=== PATIENT | female | born 1940 ===

== ENCOUNTER 2017-08-06 16:36 | Inpatient (IN) | payer MEDICARE ==
[~2017-08-06] VITALS: Ht 144.8 cm; Wt 74.4 kg
[2017-08-06 15:00] VITALS: BP 152/65
[2017-08-06 16:00] VITALS: BP 170/80
--- NOTE | 2017-08-06 16:00 | NUR ---
Admitted to ARU per wheelchair accompanied by ambulance staff. With diagnosis os osteoarthritis left knee, S/P TKA. With pain rated as 10/10 over left knee. Alert x4, Amharic speaking. Not in any form of distress. With family at bedside. Oriented to equipment and unit. Routine admission care done. Dr. Elizalde informed of admission. Dr. Connolly informed of admission and confirmed medication reconciliation.
--- NOTE | 2017-08-06 17:30 | NUR ---
PRN [place] given for pain over left knee rated as 10/10.
[2017-08-06] MEDS: HYDROCODONE/APAP 10-325 MG TABLET PO PRN ×2 (17:31→20:55)
[2017-08-06] MEDS ORDERED: CLON0.1T14 PO (17:45)
[2017-08-06] MEDS ORDERED: RIVA10TA PO (17:45)
[2017-08-06] MEDS ORDERED: ALPR0.5T PO (17:45)
[2017-08-06] MEDS ORDERED: DOCU-141 PO (17:45)
[2017-08-06] MEDS ORDERED: Z GUARD REMEDY PASTE 57 GM TUBE TOP PRN (17:45)
[2017-08-06] MEDS ORDERED: ACET-2154 PO (17:45)
[2017-08-06] MEDS ORDERED: LISI10TA5 PO (17:45)
[2017-08-06] MEDS ORDERED: CLONIDINE HCL 0.1 MG TABLET PO PRN (19:00)
[2017-08-06 20:55] VITALS: BP 133/72
[2017-08-06] MEDS: ALPRAZOLAM 0.5 MG TABLET PO PRN (23:14)
[2017-08-07] MEDS: HYDROCODONE/APAP 10-325 MG TABLET PO PRN ×3 (05:24→15:42)
--- NOTE | 2017-08-07 07:00 | NUR ---
RECEIVED REPORT FROM ENVIRONMENTAL HEALTH TECHNICIAN. PATIENT ON BED, AWAKE, AFGHAN SPEAKING ONLY, DAUGHTER AND NIECE AT BEDSIDE. NO ACUTE DISTRESS NOTED. NO BM SINCE 08/03/17 PER FAMILY. RESPIRATIONS ARE EVEN AND UNLABORED. COMFORT MEASURES PROVIDED. CALL LIGHT WITHIN REACH. WILL CONTINUE TO MONITOR CLOSELY.
[2017-08-07 08:00] VITALS: BP 155/67
[2017-08-07] MEDS: RIVAROXABAN 10 MG TABLET PO SCH (08:22)
[2017-08-07] MEDS: DOCUSATE SODIUM 100 MG CAPSULE PO SCH ×2 (08:22→16:17)
[2017-08-07] MEDS: LISINOPRIL 10 MG TABLET PO SCH (08:22)
--- NOTE | 2017-08-07 19:45 | NUR ---
Patient alert, awake and oriented x3. Thai speaking. Family at bedside during this time. No acute distress noted. Complained of left knee pain, due medication will be given. Pt breathing even and unlabored with normal respirations. Safety and fall precautions observed and maintained. Call light within reach. All needs attended.
[2017-08-07] MEDS: MORPHINE SULFATE SR 15 MG TABLET.SA PO SCH (20:10)
[2017-08-07 21:43] VITALS: BP 122/72
[2017-08-07] MEDS: ALPRAZOLAM 0.5 MG TABLET PO PRN (22:15)
[2017-08-08] MEDS: OXYCODONE HCL 5 MG TABLET PO PRN ×3 (02:07→18:18)
--- NOTE | 2017-08-08 06:06 | NUR ---
Patient slept intermittently throughout the shift. Daughter and niece at bedside. No apparent distress noted. Complained of pain, PRN oxycodone given. Pt was anxious, requested for PRN xanax. Relief noted. Kept clean, dry and comfortable. Call light within reach. All needs anticipated.
[2017-08-08 07:20] LABS: BASOPHILS % (AUTO) 0.1 % (0.0-2.0); EOSINOPHILS # (AUTO) 0.1 K/uL (0.0-0.7); EOSINOPHILS % (AUTO) 0.8 % (0.0-7.0); HEMATOCRIT 30.6 % (31.2-41.9); HEMOGLOBIN 10.4 g/dL (10.9-14.3); LYMPHOCYTES # (AUTO) 1.4 K/uL (20.0-40.0); LYMPHOCYTES % (AUTO) 12.2 % (20.5-51.5); MEAN CORPUSCULAR HEMOGLOBIN 30.9 uug (24.7-32.8); MEAN CORPUSCULAR HGB CONC 34 g/dL (32.3-35.6); MEAN CORPUSCULAR VOLUME 91.1 fL (75.5-95.3); MONOCYTES # (AUTO) 0.8 K/uL (2.0-10.0); MONOCYTES % (AUTO) 6.9 % (0.0-11.0); NEUTROPHILS # (AUTO) 8.8 K/uL (1.8-8.9); PLATELET COUNT (AUTO) 161 K/uL (179-408); RED BLOOD CELL COUNT(AUTO) 3.36 MIL/uL (3.63-4.92)
[2017-08-08 07:27] LABS: CARBON DIOXIDE 27 mmol/L (21-32); CHLORIDE 103 mmol/L (98-107); CREATININE 0.7 mg/dL (0.6-1.3); GLUCOSE 154 mg/dL (74-106); POTASSIUM 3.9 mmol/L (3.5-5.1); UREA NITROGEN, BLOOD 15 mg/dL (7-18)
[2017-08-08 08:46] VITALS: BP 124/68
[2017-08-08] MEDS: MORPHINE SULFATE SR 15 MG TABLET.SA PO SCH ×2 (08:47→21:25)
[2017-08-08] MEDS: LISINOPRIL 10 MG TABLET PO SCH (08:51)
[2017-08-08] MEDS: RIVAROXABAN 10 MG TABLET PO SCH (08:51)
[2017-08-08] MEDS: DOCUSATE SODIUM 100 MG CAPSULE PO SCH ×2 (08:52→17:54)
[2017-08-08] MEDS: ACETAMINOPHEN 325 MG TABLET PO PRN (14:27)
--- NOTE | 2017-08-08 16:56 | NUR ---
INTERDISCIPLINARY TEAM CONFERENCE
--- NOTE | 2017-08-08 16:59 | NUR ---
INTERDISCIPLINARY TEAM CONFERENCE
[2017-08-08] MEDS: MAGNESIUM HYDROXIDE 30 ML LIQUID UDC PO PRN ×2 (17:54→18:19)
--- NOTE | 2017-08-08 19:27 | NUR ---
PT IS LAYING IN BED COMFORTABLY. PT IS CALM AN D COOPERATIVE, NO S/S OF BLEEDING NOTED. NO S/S OF RESPIRATORY DISTRESS NOTED. NO PAIN NOTED. ALL SAFETY NEEDS ARE MET.
[2017-08-08 20:39] VITALS: BP 107/67
--- NOTE | 2017-08-08 22:07 | NUR ---
Received pt sitting on a wheelchair with family at bedside, alert, awake and oriented x3. Pleasant, calm and cooperative to care. No acute distress noted. No SOB. Assisted to the bathroom as needed. encouraged to verbalize needs and concerns. Call light within reach. All needs attended.
[2017-08-09] MEDS: OXYCODONE HCL 5 MG TABLET PO PRN ×2 (00:24→22:11)
[2017-08-09] MEDS: ALPRAZOLAM 0.5 MG TABLET PO PRN ×2 (04:23→22:10)
[2017-08-09] MEDS: LISINOPRIL 10 MG TABLET PO SCH (08:34)
[2017-08-09] MEDS: MORPHINE SULFATE SR 30 MG TABLET.SA PO SCH ×2 (08:35→20:36)
[2017-08-09] MEDS: DOCUSATE SODIUM 100 MG CAPSULE PO SCH ×2 (08:35→16:00)
[2017-08-09] MEDS: RIVAROXABAN 10 MG TABLET PO SCH (08:37)
[2017-08-09 08:58] VITALS: BP 111/58
[2017-08-09] MEDS: ACETAMINOPHEN 325 MG TABLET PO PRN (16:00)
--- NOTE | 2017-08-09 18:43 | NUR ---
Daily nursing note Patient was awake and alert, denies pain and not in distress. Patient was on CPM machine, tolerated well, ice packs was applied, pain management provided, kept comfortable clean and dry needs attended promptly due, medications given, compliant with her plan of care, call light in reach.
[2017-08-09 20:51] VITALS: BP 117/61
--- NOTE | 2017-08-09 22:19 | NUR ---
Received pt sitting on a wheelchair with family at bedside, alert, awake and oriented x3. No acute distress noted. Complained of left lower ext pain, medicated with morphine. Breathing even and unlabored with normal respirations. Kept clean, dry and comfortable. Call light within reach. All needs attended.
--- NOTE | 2017-08-10 08:30 | NUR ---
RN AM shift notes, received pt in bed awake, alert, oriented x4 verbally responsive, family at bedside, s/p L knee surgery, at knee site there is bruising around incisional site, pt c/o pain to L knee, pt will be medicated with MS contin, encourage to move around in bed, no distress.
[2017-08-10] MEDS: DOCUSATE SODIUM 100 MG CAPSULE PO SCH ×2 (08:32→17:30)
[2017-08-10] MEDS: MORPHINE SULFATE SR 30 MG TABLET.SA PO SCH ×2 (08:34→20:44)
[2017-08-10] MEDS: RIVAROXABAN 10 MG TABLET PO SCH (08:35)
[2017-08-10] MEDS: LISINOPRIL 10 MG TABLET PO SCH (08:35)
[2017-08-10 09:01] VITALS: BP 111/60
--- NOTE | 2017-08-10 11:15 | NUR ---
pt in bed no c/o pain at this time, no distress.
[2017-08-10] MEDS: MAGNESIUM HYDROXIDE 30 ML LIQUID UDC PO PRN (12:30)
[2017-08-10] MEDS: OXYCODONE HCL 5 MG TABLET PO PRN ×2 (12:31→17:30)
--- NOTE | 2017-08-10 18:00 | NUR ---
Pt in bed walk earlier with PT, back to bed now, c/o pain to L knee medicated with 15 mg po oxy earlier and now comfortable in bed, no distress.
[2017-08-10 20:00] VITALS: BP 110/60
--- NOTE | 2017-08-10 20:00 | NUR ---
RECEIVED PATIENT AWAKE IN BED WITH FAMILY AT BEDSIDE. PATIENT IS ALERT TO SELF ONLY AT THIS TIME. CONFUSED AND DISORIENTED. LITHUANIAN SPEAKING ONLY AND REQUIRES ACUTE SPECIALIST. DRESSING NOTED TO LEFT KNEE, DISBELIEVE. CHANGED DRESSING. C/O MILD PAIN NOTED TO LEFT KNEE. PATIENT IS DUE FOR ROUTINE PAIN MEDICATION AT 2100. VERBALIZED UNDERSTANDING. ICE APPLIED FOR ADDITIONAL COMFORT AND PAIN RELIEF. VSS. BED ALARM ON. CALL LIGHT IN REACH. ALL NEEDS ATTENDED. WILL CONTINUE TO MONITOR AND ASSESS.
[2017-08-10] MEDS: GUAIFENESIN SUGAR FREE 100 MG/5 ML UDC PO PRN (20:43)
[2017-08-10] MEDS: ALPRAZOLAM 0.5 MG TABLET PO PRN (23:07)
[2017-08-10] MEDS: ACETAMINOPHEN 325 MG TABLET PO PRN (23:07)
--- NOTE | 2017-08-10 23:10 | NUR ---
PATIENT AWAKE IN BED. CONFUSED AND DISORIENTED. NEEDS FREQUENT REDIRECTION. TRYING TO CLIMB OOB. APPEARS ANXIOUS. PATIENT GIVEN XANAX 0.5MG PO PRN FOR ANXIETY. CALL LIGHT IN REACH. BED ALARM ON. WILL CONTINUE TO MONITOR AND ASSESS.
--- NOTE | 2017-08-11 01:00 | NUR ---
PATIENT DOZING ON AND OFF IN BED. BED ALARM ON.
--- NOTE | 2017-08-11 05:10 | NUR ---
PATIENT AWAKE IN BED. MORE ALERT THIS AM. SLEPT AT INTERVALS. DRESSING NOTED TO LEFT KNEE, CHANGED. PATIENT C/O PAIN. GIVEN OXYIR 15MG PO PRN FOR PAIN. ICE APPLIED FOR ADDITIONAL COMFORT AND RELIEF. CALL LIGHT IN REACH. BED ALARM ON. WILL CONTINUE TO MONITOR AND ASSESS.
[2017-08-11] MEDS: OXYCODONE HCL 5 MG TABLET PO PRN ×2 (05:11→16:22)
--- NOTE | 2017-08-11 08:30 | NUR ---
Received pt in bed awake, alert, oriented x3, verbally responsive, c/o pain to L knee will medicated with MS contin, L knee site dressing d/i, pt will take a shower and will change dressing today, call light in reach.
[2017-08-11] MEDS: MORPHINE SULFATE SR 30 MG TABLET.SA PO SCH ×2 (10:41→21:43)
[2017-08-11] MEDS: DOCUSATE SODIUM 100 MG CAPSULE PO SCH ×3 (10:41→21:00)
[2017-08-11] MEDS: MAGNESIUM HYDROXIDE 30 ML LIQUID UDC PO PRN (10:41)
[2017-08-11] MEDS: LISINOPRIL 10 MG TABLET PO SCH (10:41)
[2017-08-11] MEDS: GUAIFENESIN SUGAR FREE 100 MG/5 ML UDC PO PRN (10:42)
[2017-08-11] MEDS: RIVAROXABAN 10 MG TABLET PO SCH (10:43)
[2017-08-11 10:44] VITALS: BP 106/54
--- NOTE | 2017-08-11 12:42 | NUR ---
Pt back to bed have a shower, dressing was change to L knee, and was place on CPN by PT tolerated well.
[2017-08-11] MEDS ORDERED: BISACODYL 10 MG SUPP.RECT RC PRN (13:15)
--- NOTE | 2017-08-11 16:22 | NUR ---
Pt c/o pain to L knee medicated with oxy 15 mg po.
[2017-08-11] MEDS ORDERED: BISACODYL 10 MG SUPP.RECT RC ONE (18:00)
--- NOTE | 2017-08-11 19:40 | NUR ---
RECEIVED PATIENT IN ROOM, TRYING TO GET OOB. PATIENT IS CONFUSED AND APPEARS ANXIOUS, ALSO C/O OF DISCOMFORT IN LEFT KNEE. PATIENT GIVEN TYLENOL 650MG PO PRN FOR MILD PAIN AND XANAX 0.5MG PO FOR ANXIETY. VS WNL. NO RESP. DISTRESS NOTED. DRESSING NOTED TO LEFT KNEE, INTACT. BED ALARM ON. CALL LIGHT IN REACH. ALL NEEDS ATTENDED. WILL CONTINUE TO MONITOR.
[2017-08-11] MEDS: ALPRAZOLAM 0.5 MG TABLET PO PRN (19:41)
[2017-08-11] MEDS: ACETAMINOPHEN 325 MG TABLET PO PRN (19:41)
[2017-08-11 20:58] VITALS: BP 125/54
[2017-08-11] MEDS: QUETIAPINE FUMARATE 25 MG TABLET PO SCH (21:43)
--- NOTE | 2017-08-12 06:55 | NUR ---
PATIENT RESTING IN BED. APPEARS MORE ALERT THIS AM. FAMILY AT BEDSIDE. SLEPT WELL THROUGHOUT THE NIGHT. NO C/O PAIN AT THIS TIME. BED ALARM ON. CALL LIGHT IN REACH. ALL NEEDS ATTENDED. WILL CONTINUE TO MONITOR.
[2017-08-12] MEDS: DOCUSATE SODIUM 100 MG CAPSULE PO SCH ×4 (08:29→20:42)
[2017-08-12] MEDS: RIVAROXABAN 10 MG TABLET PO SCH (08:31)
[2017-08-12] MEDS: LISINOPRIL 10 MG TABLET PO SCH (08:32)
[2017-08-12] MEDS: MORPHINE SULFATE SR 30 MG TABLET.SA PO SCH (08:33)
[2017-08-12] MEDS: ACETAMINOPHEN 325 MG TABLET PO PRN ×3 (08:38→20:42)
[2017-08-12 13:00] VITALS: BP 115/62
--- NOTE | 2017-08-12 20:00 | NUR ---
Received pt resting in bed. No s/s of acute distress noted at this time. Bed in low, locked position. Call light within reach. Safety measures provided. Will continue to monitor.
[2017-08-12 20:32] VITALS: BP 119/66
[2017-08-12] MEDS: QUETIAPINE FUMARATE 25 MG TABLET PO SCH (20:42)
[2017-08-13] MEDS: OXYCODONE HCL 5 MG TABLET PO PRN ×3 (05:25→14:08)
--- NOTE | 2017-08-13 05:44 | NUR ---
Pt noted have slept intermittently throughout the night with family at bedside. Pain management provided. Surgical dressing changed as ordered; pt tolerated well. No s/s of distress noted at this time. All needs attended to. Will continue to monitor and assess client.
--- NOTE | 2017-08-13 07:15 | NUR ---
received report from hotel night auditor nruse, patient in bed asleep, no distress noted, bed in low position, side rails up x2, family at bedside sleeping.
[2017-08-13 07:30] VITALS: BP 115/77
--- NOTE | 2017-08-13 08:51 | NUR ---
I agree Addendum: 08/13/17 at 0851 by SEVEN FIGUEROA OT Amended: Links added.
--- NOTE | 2017-08-13 08:51 | NUR ---
I agree Addendum: 08/13/17 at 0852 by SEVEN FIGUEROA OT Amended: Links added.
[2017-08-13] MEDS: DOCUSATE SODIUM 100 MG CAPSULE PO SCH ×3 (09:00→20:48)
[2017-08-13] MEDS: LISINOPRIL 10 MG TABLET PO SCH (09:08)
[2017-08-13] MEDS: RIVAROXABAN 10 MG TABLET PO SCH (09:11)
--- NOTE | 2017-08-13 19:04 | NUR ---
patient has been cooperative with care, participated in therapy but had intermittent pain throughout the day. Patient declined to have picture taken of knee, and thigh. Stated that she will have it done tonight. Currently in bed no distress noted bed in low position, side rails up x2.
[2017-08-13 19:30] VITALS: BP 122/69
--- NOTE | 2017-08-13 19:45 | NUR ---
Received pt lying comfortably in bed, alert awake and oriented x3. Family at bedside. Complained of 10/10 pain on her left knee, upon assessment redness and swelling noted on incision site. Pictures taken and placed on chart. MD aware. No SOB noted. Call light within reach. All needs attended.
[2017-08-13] MEDS: ACETAMINOPHEN 325 MG TABLET PO PRN (20:48)
[2017-08-13] MEDS: QUETIAPINE FUMARATE 25 MG TABLET PO SCH (20:48)
[2017-08-13 21:24] LABS: BASOPHILS % (AUTO) 0.3 % (0.0-2.0); EOSINOPHILS # (AUTO) 0.1 K/uL (0.0-0.7); HEMATOCRIT 31.2 % (31.2-41.9); HEMOGLOBIN 10.8 g/dL (10.9-14.3); LYMPHOCYTES # (AUTO) 0.9 K/uL (20.0-40.0); LYMPHOCYTES % (AUTO) 8.8 % (20.5-51.5); MEAN CORPUSCULAR HEMOGLOBIN 31.5 uug (24.7-32.8); MEAN CORPUSCULAR HGB CONC 35 g/dL (32.3-35.6); MEAN CORPUSCULAR VOLUME 91.4 fL (75.5-95.3); MONOCYTES # (AUTO) 0.8 K/uL (2.0-10.0); MONOCYTES % (AUTO) 8.2 % (0.0-11.0); NEUTROPHILS # (AUTO) 8.3 K/uL (1.8-8.9); NEUTROPHILS % (AUTO) 81.7 % (38.5-71.5); PLATELET COUNT (AUTO) 274 K/uL (179-408); RED BLOOD CELL COUNT(AUTO) 3.42 MIL/uL (3.63-4.92); WHITE BLOOD COUNT (AUTO) 10.2 K/uL (3.8-11.8)
[2017-08-13] MEDS: CEPHALEXIN MONOHYDRATE 250 MG CAPSULE PO SCH (22:19)
[2017-08-13] MEDS: MORPHINE SULFATE SR 15 MG TABLET.SA PO SCH (22:21)
--- NOTE | 2017-08-14 05:37 | NUR ---
Pt slept well throughout the shift with no signs/symptoms of distress noted. no SOB noted. Dressing change on left knee surgical site done, no drainage was noted. All due meds given as ordered and well tolerated. Safety and fall precautions observed and maintained. Call light within reach. All needs attended.
[2017-08-14] MEDS: CEPHALEXIN MONOHYDRATE 250 MG CAPSULE PO SCH ×3 (06:24→21:12)
[2017-08-14] MEDS: MORPHINE SULFATE SR 15 MG TABLET.SA PO SCH ×3 (06:25→21:13)
[2017-08-14] MEDS: MAGNESIUM HYDROXIDE 30 ML LIQUID UDC PO PRN (06:25)
[2017-08-14 07:24] LABS: BASOPHILS % (AUTO) 0.4 % (0.0-2.0); EOSINOPHILS # (AUTO) 0.1 K/uL (0.0-0.7); EOSINOPHILS % (AUTO) 2.2 % (0.0-7.0); HEMATOCRIT 31.8 % (31.2-41.9); HEMOGLOBIN 10.9 g/dL (10.9-14.3); LYMPHOCYTES # (AUTO) 1.1 K/uL (20.0-40.0); LYMPHOCYTES % (AUTO) 17.1 % (20.5-51.5); MEAN CORPUSCULAR HEMOGLOBIN 31.7 uug (24.7-32.8); MEAN CORPUSCULAR HGB CONC 34 g/dL (32.3-35.6); MONOCYTES # (AUTO) 0.6 K/uL (2.0-10.0); MONOCYTES % (AUTO) 9.2 % (0.0-11.0); NEUTROPHILS # (AUTO) 4.7 K/uL (1.8-8.9); NEUTROPHILS % (AUTO) 71.1 % (38.5-71.5); PLATELET COUNT (AUTO) 274 K/uL (179-408); RED BLOOD CELL COUNT(AUTO) 3.45 MIL/uL (3.63-4.92); WHITE BLOOD COUNT (AUTO) 6.6 K/uL (3.8-11.8)
[2017-08-14 07:56] LABS: CARBON DIOXIDE 26 mmol/L (21-32); CHLORIDE 101 mmol/L (98-107); CREATININE 0.8 mg/dL (0.6-1.3); GLUCOSE 120 mg/dL (74-106); MAGNESIUM 2.2 mg/dL (1.8-2.4); PHOSPHOROUS 3.8 mg/dL (2.5-4.9); POTASSIUM 4.3 mmol/L (3.5-5.1); UREA NITROGEN, BLOOD 19 mg/dL (7-18)
[2017-08-14 08:00] VITALS: BP 119/63
[2017-08-14] MEDS: LISINOPRIL 10 MG TABLET PO SCH (11:05)
[2017-08-14] MEDS: DOCUSATE SODIUM 100 MG CAPSULE PO SCH ×2 (11:05→20:50)
--- NOTE | 2017-08-14 11:05 | NUR ---
I agree Addendum: 08/14/17 at 1105 by SEVEN FIGUEROA OT Amended: Links added.
--- NOTE | 2017-08-14 11:05 | NUR ---
I agree Addendum: 08/14/17 at 1114 by SEVEN FIGUEROA OT Amended: Links added.
[2017-08-14] MEDS: RIVAROXABAN 10 MG TABLET PO SCH (11:11)
--- NOTE | 2017-08-14 14:45 | NUR ---
SBAR report received this morning, board updated. Pt assessed. Reports pain managed with PRN medications. Pt compliant with all routine medication and therapies. Wound care provided as ordered. All needs attended to. Call light within reach. Will continue to monitor.
[2017-08-14] MEDS: ACETAMINOPHEN 325 MG TABLET PO PRN (14:53)
--- NOTE | 2017-08-14 17:04 | NUR ---
pt experiences severe pain in left knee 10/10 when laying flat on ordinary bed. Pt provided comfort measures to alleviate pain. intervention enough because continues to complain. pt on morphine but not enough to alleviate pain. when patient is in a hospital and the foot of the bed elevate to 25%, pt pain is alleviated down to 4/10. pt requires frequent body repositioning to prevent DVT. will continue to monitor.
--- NOTE | 2017-08-14 20:00 | NUR ---
Received pt sitting on a chair, alert and oriented x3. Polish speaking. No acute distress noted. Complained of left knee pain, morphine will be given. no SOB noted. Ambulates with a walker with standby assistance. Encouraged to verbalize needs and concerns and to call for assistance if needed. call light within reach. all needs attended.
[2017-08-14 20:24] VITALS: BP 99/64
[2017-08-14] MEDS: QUETIAPINE FUMARATE 25 MG TABLET PO SCH (20:50)
[2017-08-15] MEDS: MORPHINE SULFATE SR 15 MG TABLET.SA PO SCH ×3 (06:35→21:09)
[2017-08-15] MEDS: CEPHALEXIN MONOHYDRATE 250 MG CAPSULE PO SCH ×3 (06:36→21:08)
[2017-08-15 08:00] VITALS: BP 113/70
[2017-08-15] MEDS: DOCUSATE SODIUM 100 MG CAPSULE PO SCH ×2 (09:56→20:56)
[2017-08-15] MEDS: LISINOPRIL 10 MG TABLET PO SCH (09:57)
[2017-08-15] MEDS: RIVAROXABAN 10 MG TABLET PO SCH (10:06)
[2017-08-15] MEDS: ACETAMINOPHEN 325 MG TABLET PO PRN (14:39)
[2017-08-15 15:57] VITALS: BP 120/62
--- NOTE | 2017-08-15 18:34 | NUR ---
SBAR report received this morning, board updated. Pt assessed, no acute distress or SOB evident. Bed has remained in locked and lowest position with side rails up x2. Pt compliant with both therapy and use of CPM as ordered. Incisional wound care provided as ordered. Base of incision still appears red. All safety and comfort needs attended to. Call light in reach. Pt currently visiting with family. Will continue to monitor and endorse to oncoming night shift manager.
[2017-08-15 19:49] VITALS: BP 140/53
--- NOTE | 2017-08-15 20:00 | NUR ---
Received pt on bed asleep with no signs/symptoms of distress noted. Denies pain at this time. Breathing even and unlabored with normal respirations. Assisted to the bathroom as needed. kept clean, dry and comfortable. Safety and fall precautions observed and maintained. Call light within reach. All needs attended
[2017-08-15] MEDS: QUETIAPINE FUMARATE 25 MG TABLET PO SCH (20:56)
--- NOTE | 2017-08-16 06:07 | NUR ---
Pt slept well throughout the night. Family at bedside. No acute distress noted. Complained of 4/10 left knee pain. Hourly rounding done. Encouraged to verbalize needs and concerns and to call for assistance if needed. Call light within reach. All needs attended.
[2017-08-16] MEDS: CEPHALEXIN MONOHYDRATE 250 MG CAPSULE PO SCH ×2 (06:29→14:17)
[2017-08-16] MEDS: MORPHINE SULFATE SR 15 MG TABLET.SA PO SCH ×2 (06:30→14:17)
[2017-08-16 06:55] VITALS: BP 136/52
--- NOTE | 2017-08-16 07:30 | NUR ---
Report received.Pt remains awake,alert,armenian speaking.Pt family at bedside.Updated with plan of care.
[2017-08-16] MEDS: DOCUSATE SODIUM 100 MG CAPSULE PO SCH (08:56)
[2017-08-16] MEDS: LISINOPRIL 10 MG TABLET PO SCH (08:57)
[2017-08-16 09:02] VITALS: BP 108/57
[2017-08-16] MEDS: RIVAROXABAN 10 MG TABLET PO SCH (09:03)
--- NOTE | 2017-08-16 13:00 | NUR ---
Discharge instruction given to pt family.Verbalized understanding.Dressing to Right knee was change.
[2017-08-16] MEDS: ACETAMINOPHEN 325 MG TABLET PO PRN (13:25)
[2017-08-16] MEDS: MAGNESIUM HYDROXIDE 30 ML LIQUID UDC PO PRN (13:25)
[2017-08-16 16:10] VITALS: BP 87/48
[2017-08-16 16:44] VITALS: BP 113/73
--- NOTE | 2017-08-16 17:56 | NUR ---
Pt remains awake,alert,oriented.Denies pain,discomfort Discharge home with family via wheelchair in stable condition.
== END 2017-08-16 18:10 | disposition home health service (06) | DRG 560 ==
PROVIDERS: ADMIT Physical Medicine & Rehabilitation Pain Medicine; ATTEND Physical Medicine & Rehabilitation Pain Medicine
DX: Z47.1 Aftercare following joint replacement surgery (principal); D68.59 Other primary thrombophilia; L03.116 Cellulitis of left lower limb; T81.4XXA Infection following a procedure, initial encounter; E11.9 Type 2 diabetes mellitus without complications; Z96.652 Presence of left artificial knee joint; E66.9 Obesity, unspecified; F41.0 Panic disorder [episodic paroxysmal anxiety]; I10 Essential (primary) hypertension; Z68.35 Body mass index [BMI] 35.0-35.9, adult; F43.10 Post-traumatic stress disorder, unspecified; K59.00 Constipation, unspecified; R05 Cough; F41.9 Anxiety disorder, unspecified; Z88.6 Allergy status to analgesic agent; Y83.8 Other surgical procedures as the cause of abnormal reaction of the patient, or of later complication, without mention of misadventure at the time of the procedure; Y92.230 Patient room in hospital as the place of occurrence of the external cause
CPT/HCPCS: 36415; 71045; 83735; 84100; 85025; 92526; 92610; 97110; 97112; 97116; 97165; 97530; 97535